=== PATIENT | female | born 1990 | race American Indian/Alaskan Native ===

== ENCOUNTER 2021-06-12 11:06 | Outpatient (CLI) | payer OTHER ==
--- NOTE | 2021-06-12 15:46 | XRay Report ---
LEFT HAND HISTORY: Pain COMPARISON: None. TECHNIQUE: 3 views of the left hand were obtained. There is flexion of the fingers which limits evalu ation. FINDINGS: Bones: No fracture or dislocation. Joint spaces: Maintained. Soft tissues: No significant abnormality. Additional findings: None. IMPRESSION: Left hand without evidence of acute osseous injury. There is flexion of the fingers which limits eval uation. If there is focal pain or injury in the region of the fingers, follow-up radiographs would be recommended. Signer Name: Marcus Aragon MD Signed: 06/12/2021 3:42 PM Workstation Name: [id number]
--- NOTE | 2021-06-12 16:25 | XRay Report ---
LEFT WRIST HISTORY: LEFT WRIST PAIN COMPARISON: None. TECHNIQUE: 3 views of the left wrist obtained. FINDINGS: Bones: No fracture or dislocation. Joint spaces: Maintained. Soft tissues: No significant abnormality. Additional findings: None. IMPRESSION: Unremarkable left wrist radiographs. No evidence of acute osseous injury or significant degenerative change. Signer Name: Marcus Aragon MD Signed: 06/12/2021 4:21 PM Workstation Name: [id number]
== END 2021-06-12 11:07 | disposition home or self-care (01) ==
LOC: XRAY 11:06
PROVIDERS: ATTEND Internal Medicine
DX: M25.532 Pain in left wrist (principal); M79.642 Pain in left hand